=== PATIENT | male | born 1970 | race Caucasian/White ===

== ENCOUNTER → 2017-11-29 | Outpatient (CLI) | payer BC ==
[~2017-11-29] MED LIST: AUG875 PO; LISI-357 PO; PER PO
--- NOTE | 2017-11-29 17:33 | RT STRESS TEST REPORT ---
FACILITY: [facility] PATIENT NAME: RUTHY MCQUEEN : [id number] MR: [id number] V: [id number] EXAM DATE: ORDERING PHYSICIAN: KATHLEEN OVIEDO TECHNOLOGIST: [employer] Time: 2017-11-29 07:05:36 Total Exercise Time: 00:09:00 Test Indications: Chest Discomfort Medications: lisinopril Protocol: COMLY/MANISH Max HR: 162 BPM 93% of Pred: 173 BPM Max BP: 186/096 mmHG Max Work Load: 10.1 METS see echo report Confirmed by ABDI MCKEON ([id number]) on 11/29/2017 5:32:32 PM Referred By: Kathleen Oviedo Overread By: ABDI MCKEON
--- NOTE | 2017-11-29 19:08 | RADIOLOGY IMAGING REPORT ---
FACILITY: [facility] PATIENT NAME: RUTHY MCQUEEN : [id number] MR: [id number] V: [id number] EXAM DATE: [id number] ORDERING PHYSICIAN: JAZMIN TOUSSAINT TECHNOLOGIST: Tonia Taylor PROCEDURE: STRESS ECHOCARDIOGRAPHY COMPARISON: None. INDICATIONS: CHEST PAIN. FINDINGS: After informed consent the patient was exercised using the Federico protocol. He was able to complete the end of stage 3 of the Federico protocol at which time he achieved 93% of predicted maximum heart rate. He had no complaints of any chest pain or chest pressures, nonspecific ST segment depression. No arrhythmias were noted. Baseline EKG showed normal sinus rhythm with right axis deviation. ECHOCARDIOGRAPHIC PORTION OF STRESS TEST: At rest the patient had normal left ventricular ejection fraction with a grade 1/4 decrease in diastolic function. Trace of mitral and tricuspid insufficiency was noted. Mild aortic sclerosis was noted but no aortic stenosis. There were normal right ventricular pressures. With exercise the patient had normal hyperdynamic response to exercise with no left ventricular segmental wall motion abnormalities. OVERALL IMPRESSION: 1. Normal stress echocardiograph with normal left ventricular function systolically at rest with hyperdynamic response to exercise and low probability of ischemia. 2. A grade 1/4 decrease in diastolic function. 3. A trace of mitral and tricuspid insufficiency with normal right ventricular systolic pressures. 4. Mild aortic sclerosis but no stenosis. Dictated by: Yenni Membreno M.D. on 11/29/2017 at 8:54 Transcribed by: MAN on 11/29/2017 at 18:05 Approved by: Yenni Membreno M.D. on 11/29/2017 at 19:07 [facility]
== END ==
LOC: US 00:44
PROVIDERS: ATTEND Family Medicine
DX: I34.0 Nonrheumatic mitral (valve) insufficiency (principal); I07.1 Rheumatic tricuspid insufficiency; I35.8 Other nonrheumatic aortic valve disorders
CPT/HCPCS: 93017; 93325; 93350

== ENCOUNTER 2018-06-21 14:24 | Emergency (ER) | payer BC ==
[2018-06-21] MEDS ORDERED: LISI-362 PO (14:37)
--- NOTE | 2018-06-21 14:37 | ER Report ---
History and Physical Time Seen By MD: 14:36 Hx. of Stated Complaint: FINGERS CAUGHT IN TABLE SAW HPI/ROS CHIEF COMPLAINT: Traumatic injury to fingers HISTORY OF PRESENT ILLNESS: This is a 47-year-old male presents to the emergency department for a table saw injury to his fingers. Patient states that about 30 minute prior to arrival he was using his table saw, looked away for just a moment and ran his left index finger and thumb finger through the table saw. Patient drove himself to the emergency department. Bleeding is controlled. Patient appears in significant pain. The patient is sweaty and anxious. However he has no other complaints no chest pain or shortness breath. No recent illnesses. REVIEW OF SYSTEMS: Constitutional: No fever, no chills. Eyes: No discharge. ENT: No sore throat. Cardiovascular: No chest pain, no palpitations. Respiratory: No cough, no shortness of breath. Gastrointestinal: No abdominal pain, no vomiting. Genitourinary: No hematuria. Musculoskeletal: As above. Skin: As above. Neurological: No headache. Allergies: Coded Allergies: No Known Drug Allergies (Verified , 06/21/18) Home Meds Active Scripts Cephalexin 500 Mg Tab (KEFLEX 500 MG TAB) 500 Mg Tablet, 500 MG PO Q6H, #28 TAB 0 Refills Prov:MOE EVERETT [facility] 06/21/18 Ondansetron (ZOFRAN ODT) 4 Mg Tab.rapdis, 4 MG PO Q6H Y for NAUSEA/VOMITING, # 20 TAB.RIC Prov:MOE EVERETT [facility] 06/21/18 Hydrocodone Bit/Acetaminophen (HYDROCODON-ACETAMINOPHEN 5-325) 1 Each Tablet, 1 EACH PO Q4-6H Y for PAIN, #12 TAB Prov:MOE EVERETT [facility]- 06/21/18 Reported Medications Lisinopril (LISINOPRIL) 10 Mg Tablet, 30 MG PO QDAY, TAB 06/21/18 Discontinued Reported Medications Amoxicillin/Clavulanate K (Augmentin) 875 Mg Tab, 875 MG PO BIDBS, #14 0 Refills 04/06/11 Oxycodone/Acetaminophen (OXYCODONE/ACETAMINOPHEN 5MG/325 MG) 5 Mg/325 Mg Tab, 1 TAB PO Q4-6H, #15 0 Refills 04/06/11 Lisinopril (Lisinopril) 5 Mg Tablet, 5 MG PO DAILY, 0 Refills UNSURE OF THE DOSE 04/06/11 Past Medical/Surgical History The patient has a past medical and surgical history of hypertension, torn hamstring multiple laceration repairs, hamstring surgery. Hx Smoking: Yes Hx Substance Use Disorder: No Hx Alcohol Use: No Constitutional Vital Sign - Last 24 Hours 06/21/18 06/21/18 06/21/18 06/21/18 14:31 14:32 14:45 15:00 Temp 97.5 Pulse 92 86 95 Resp 18 B/P (MAP) 109/79 (89) 109/79 Pulse Ox 91 98 91 O2 Delivery Room Air 06/21/18 06/21/18 06/21/18 06/21/18 15:15 15:30 15:33 15:45 Pulse 91 89 89 B/P (MAP) 111/77 (88) Pulse Ox 96 92 94 06/21/18 06/21/18 06/21/18 06/21/18 16:00 16:15 16:30 16:45 Pulse 90 83 92 B/P (MAP) 111/82 (92) 119/86 (97) Pulse Ox 100 98 100 96 06/21/18 06/21/18 06/21/18 06/21/18 17:00 17:15 17:30 17:45 Pulse 85 82 80 78 B/P (MAP) 108/74 (85) 115/84 (94) Pulse Ox 97 99 96 95 06/21/18 17:55 B/P (MAP) 114/78 (90) Intake and Output 06/21/18 06/21/18 06/22/18 15:00 23:00 07:00 Intake Total 100 ml Balance 100 ml Physical Exam General Appearance: The patient is alert, has no immediate need for airway protection and no signs of toxicity, diaphoretic, pale. Eyes: Pupils equal and round no pallor or injection. ENT, Mouth: Mucous membranes are moist. Respiratory: There are no retractions, lungs are clear to auscultation. Cardiovascular: Regular rate and rhythm. Gastrointestinal: Abdomen is soft and non tender, no masses, bowel sounds normal. Neurological: Alert and oriented 4. Moving all extrude his. Following all commands. No focal neuro deficits. Skin: Very jagged wounds and lacerations to the distal aspect of the left index finger, as well as through the pad of the left thumb. Bleeding is controlled,. Through the nailbed of the left index finger. Musculoskeletal: Neck is supple non tender. Extremities Examination of the Left hand reveals a traumatic injury to the distal aspect of the left index finger, and the pad of the left thumb. The patient is able to give a thumbs up sign, is able to make an okay sign, and is able to AB duct the fingers. Sensation is intact over the dorsal 1st web space, the volar aspect of the 2nd finger, and the volar aspect of the 5th finger. Capillary refill is brisk. DIFFERENTIAL DIAGNOSIS: After history and physical exam differential diagnosis was considered for open fracture, multiple open wounds, laceration of the flexor and extensor tendons and nailbed injury. Medical Decision Making EKG/Imaging Imaging Location: [facility] [place] Patient: Butch Villar : 1970 Visit[facility]Account:[id number] [facility] Exam type: HAND COMPLETE LEFT History: Table saw injury to left index finger and thumb Comparison: April 06, 2011 Findings: There is a soft tissue laceration along the volar aspect of the distal left thumb. Soft tissue gas tracks medially along the left thumb towards the hyperthenar eminence. There is a small linear faintly opaque density seen in the superficial soft tissues of the left thumb just volar to the IP joint There is a comminuted fracture through the distal lateral aspect of the distal phalanx of the left index finger. There is a soft tissue defect seen along the distal aspect left index finger and soft tissue gas . No metallic foreign bodies are seen. IMPRESSION: 1. Soft tissue lacerations of the distal left thumb and distal aspect of the left index finger. Comminuted fracture to the distal lateral aspect of the distal phalanx of the left index finger A small linear faintly opaque density seen in the superficial soft tissues of the left thumb just volar to the IP joint which may represent a small foreign body Report Dictated By: Ana Maria Kramer MD at 06/21/2018 3:08 PM Report E-Signed By: Ana Maria Kramer MD at 06/21/2018 3:13 PM ED Course/Re-evaluation Clinical Indication for ER IV: IV Access ED Course The patient was admitted to room. A history and physical were obtained. Differential diagnoses were considered. An IV was started.The patient was given 4 mg IV Zofran, 50 g IV fentanyl, 1 g of ceftriaxone, tenderness was updated. The wound was thoroughly cleansed and irrigated and repaired as noted below. I did explain to the patient that the likelihood that his nail will grow back. Low as it was through the nail cortex. I also contacted Dr. Randhawa has noted below, he will reevaluate the patient in his office tomorrow morning for a revision of the wound repair. The patient was also started on Keflex. Patient was given a prescription for hydrocodone and Zofran. The wounds were dressed with bacitracin a non-stick dressing pad and tube gauze, then splinted. The patient does understand that he will follow-up with Dr. Randhawa tomorrow morning. The patient had no other questions or concerns at this time and was discharged home. The hand x-ray is showing Comminuted fracture to the distal lateral aspect of the distal phalanx of the left index finger 06/21/2018 3:44:59 pm I did speak with Dr. Randhawa regarding the patient's case , he said go ahead and repair the injury, the patient has received dose of antibiotics in the ER L saw him on antibiotics and he will follow-up with Dr. Randhawa's office in the morning. Procedure: Laceration repair. Verbal consent was obtained from the patient. The distal end of the left index finger is 4 cm, with multiple lacerations coming off the main trunk, pad of the left thumb as 3 cm, was anesthetized using a digital block to the left index finger and the left thumb. The wound was scrubbed and irrigated, draped and explored to its base with a gloved finger. There were deep structures involved, including the nailbed of the left index finger. No tendon injury was identified. The wound was repaired with the left index finger was repaired with 10 simple interrupted sutures using 5-0 Ethilon, the thumb was repaired with 9 simple interrupted sutures using 4-0 Ethilon. The wound repair was complex. The procedure was performed by myself. Decision to Disposition Date: Jun 21, 2018 Decision to Disposition Time: 17:41 Depart Departure Latest Vital Signs Vital Signs Date Time Temp Pulse Resp B/P (MAP) Pulse Ox O2 Delivery O2 Flow Rate FiO2 06/21/18 17:55 114/78 (90) 06/21/18 17:45 78 95 06/21/18 14:32 97.5 18 Room Air Impression: Primary Impression: Laceration of left index finger w/o foreign body with damage to nail Additional Impressions: Laceration of left thumb Fracture of distal phalanx of finger of left hand Condition: Improved Disposition: HOME OR SELF-CARE Referrals: JEFFREY RANDHAWA MD 1 Day New Scripts Cephalexin 500 Mg Tab (KEFLEX 500 MG TAB) 500 Mg Tablet 500 MG PO Q6H, #28 TAB 0 Refills Prov: MOE EVERETT [facility]- 06/21/18 Ondansetron (ZOFRAN ODT) 4 Mg Tab.rapdis 4 MG PO Q6H Y for NAUSEA/VOMITING, #20 TAB.RIC Prov: MOE EVERETT [facility]- 06/21/18 Hydrocodone Bit/Acetaminophen (HYDROCODON-ACETAMINOPHEN 5-325) 1 Each Tablet 1 EACH PO Q4-6H Y for PAIN, #12 TAB Prov: MOE EVERETT [facility]- 06/21/18 Patient Instructions: Acute Wound Care (ED), Finger Laceration (ED), Hand Laceration Additional Instructions: You have been given an IV dose of antibiotics in the ED, a prescription has been sent to your pharmacy for Keflex, Zofran and hydrocodone. No driving while taking hydrocodone. Keep wound dry for 48 hours. Follow up with Dr. Randhawa tomorrow morning for a possible revision of the wounds to your thumb and index finger. Monitor for signs of infection; redness, swelling, heat, discharge, increasing pain or red streaking. Take Tylenol or Ibuprofen as needed for pain. Return to the ER with any concerns. You may change dressing as needed. Problem Qualifiers Primary Impression: Laceration of left index finger w/o foreign body with damage to nail Encounter type: initial encounter Qualified Codes: S61.311A - Laceration without foreign body of left index finger with damage to nail, initial encounter Additional Impressions: Laceration of left thumb Encounter type: initial encounter Damage to nail status: without damage Foreign body presence: without foreign body Qualified Codes: S61.012A - Laceration without foreign body of left thumb without damage to nail, initial encounter MOE EVERETTP- Jun 21, 2018 14:37
[2018-06-21] MEDS ORDERED: ONDANSETRON 4 MG/2 ML VIAL IVP ONE (14:50)
[2018-06-21] MEDS ORDERED: cefTRIAXone 1 GM VIAL IVP ONE (14:50)
[2018-06-21] MEDS ORDERED: fentaNYL CITR 100 MCG/2 ML AMP IVP ONE (14:50)
[2018-06-21] MEDS ORDERED: NS(*) 0.9% 100 ML ADDVANT BAG 100 ML ONE (15:01)
--- NOTE | 2018-06-21 15:17 | RADIOLOGY IMAGING REPORT ---
FACILITY: [facility] PATIENT NAME: Butch Villar : 1970 MR: [id number] V: [id number] EXAM DATE: ORDERING PHYSICIAN: MOE EVERETT TECHNOLOGIST: Location: [facility] [place] Patient: Butch Villar : 1970 Visit/Account:[id number] Date of Sevice: 06/21/2018 Exam type: HAND COMPLETE LEFT History: Table saw injury to left index finger and thumb Comparison: April 06, 2011 Findings: There is a soft tissue laceration along the volar aspect of the distal left thumb. Soft tissue gas t racks medially along the left thumb towards the hyperthenar eminence. There is a small linear faintl y opaque density seen in the superficial soft tissues of the left thumb just volar to the IP joint There is a comminuted fracture through the distal lateral aspect of the distal phalanx of the left in dex finger. There is a soft tissue defect seen along the distal aspect left index finger and soft ti ssue gas . No metallic foreign bodies are seen. IMPRESSION: 1. Soft tissue lacerations of the distal left thumb and distal aspect of the left index finger. Comminuted fracture to the distal lateral aspect of the distal phalanx of the left index finger A small linear faintly opaque density seen in the superficial soft tissues of the left thumb just vol ar to the IP joint which may represent a small foreign body Report Dictated By: Ana Maria Kramer MD at 06/21/2018 3:08 PM Report E-Signed By: Ana Maria Kramer MD at 06/21/2018 3:13 PM WSN:[email or web address]
[2018-06-21] MEDS ORDERED: DIPHTH/TETANUS/ACEL. PERTUSSIS IM ONLY ONE (15:40)
[2018-06-21] MEDS ORDERED: HYDR-385 PO (17:37)
[2018-06-21] MEDS ORDERED: ONDA4TAB PO (17:37)
[2018-06-21] MEDS ORDERED: CEPH500T7 PO (17:38)
[2018-06-21 17:55] VITALS: BP 114/78
== END 2018-06-21 18:05 | disposition home or self-care (01) ==
LOC: ER 14:45
DX: S61.311A Laceration without foreign body of left index finger with damage to nail, initial encounter (principal); S61.012A Laceration without foreign body of left thumb without damage to nail, initial encounter; S62.631A Displaced fracture of distal phalanx of left index finger, initial encounter for closed fracture; W31.2XXA Contact with powered woodworking and forming machines, initial encounter; I10 Essential (primary) hypertension; Z87.891 Personal history of nicotine dependence; Z79.899 Other long term (current) drug therapy
CPT/HCPCS: 13132; 73130; 90471; 90715; 96361; 96374; 96376; 99284; J0696; J2405; J3010; J7050; 96375

== ENCOUNTER 2019-03-28 01:02 | Day surgery (SDC) | payer BC ==
[~2019-03-28] VITALS: Ht 165.1 cm; Wt 79.8 kg
[~2019-03-28 01:02] MED LIST changes: +CEPH500T7 PO; +HYDR-385 PO; +LISI-362 PO; +ONDA4TAB PO
[2019-03-28] MEDS ORDERED: LIDOCAINE MPF 1% 5 ML VIAL ONE (07:04)
[2019-03-28] MEDS ORDERED: PROPOFOL EMUL(*) 10MG/ML 20 ML 60 ML ONE (07:04)
[2019-03-28] MEDS ORDERED: NORMOSOL R SOLN(*) 1000 ML BAG 1,000 ML IV PRN (08:00)
[2019-03-28] MEDS ORDERED: LIDOCAINE/SOD BICARB 8.4% SYR ID ONE (08:00)
[2019-03-28 08:06] VITALS: BP 125/92
[2019-03-28 08:41] VITALS: BP 111/81
--- NOTE | 2019-03-28 08:44 | Short(Outpt) Discharge Summary ---
Discharge Summary Reason for Hosp/Final Diag: (1) BRBPR (bright red blood per rectum) Hospital Course & Plan: pt presented for colonoscopy and hemorrhoid banding. he tolerated the procedure well. path pending. he will be discharged home when criteria met. Departure Discharge to: Home Discharge Instructions Home Meds Reported Medications Lisinopril (LISINOPRIL) 10 Mg Tablet, 30 MG PO QDAY, TAB 06/21/18 Diet: Regular Activity: As Tolerated Special Instructions: we will call you in 10 days with pathology results. CHARLETTE AVILA March 28, 2019 08:44
[2019-03-28 08:45] VITALS: BP 110/91
== END 2019-03-28 09:36 | disposition home or self-care (01) ==
LOC: OR 01:02
PROVIDERS: ATTEND Surgery
DX: D12.3 Benign neoplasm of transverse colon (principal); K64.8 Other hemorrhoids
CPT/HCPCS: 00811; 45385; 88305; J2001; J2704